=== PATIENT | male | born 1995 ===

== ENCOUNTER 2016-05-15 10:49 | Emergency (ER) | payer MEDICAID ==
[2016-05-15 10:54] VITALS: TEMP 98
--- NOTE | 2016-05-15 11:54 | ED PDOC ---
HPI: General Adult Time Seen by Provider: 05/15/16 11:19 Chief Complaint (Nursing): Back Pain Chief Complaint (Provider): Back Pain History Per: Patient Additional Complaint(s): Pt. states for the past year he's had atraumatic lower back pain which radiates down his leg. Pt. states he's been prescribed Gabapentin for this in the past without much relieve. 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 Denies hematuria, dysuria, incontinence, abdominal pain, N/V, fever. Past Medical History Reviewed: Historical Data, Nursing Documentation, Vital Signs Vital Signs: Last Vital Signs Temp 98 F 05/15/16 10:52 Pulse 65 05/15/16 10:52 Resp 20 05/15/16 10:52 BP 105/58 L 05/15/16 10:52 Pulse Ox 100 05/15/16 11:55 - Medical History PMH: Anxiety, Asthma, Bipolar Disorder, Depression, Hepatitis (Hep A ), Schizophrenia Denies: Diabetes, HIV, HTN, Seizures, Sexually Transmitted Disease - Surgical History Surgical History: Tonsillectomy - Family History Family History: States: Unknown Family Hx, Diabetes - Immunization History Hx Tetanus Toxoid Vaccination: No Hx Influenza Vaccination: No Hx Pneumococcal Vaccination: No - Home Medications Home Medications: Ambulatory Orders Medication Instructions Recorded Sertraline [Zoloft] 100 mg PO BID #60 tab 11/02/15 traZODone [Desyrel] 100 mg PO HS PRN #30 tab 11/02/15 [place] Carbonate [[place] 1,200 mg PO BID 11/07/15 Carbonate 300MG] Albuterol HFA [Ventolin HFA 90 2 puff INH RQ4 PRN #1 inhaler 11/19/15 mcg/actuation (8 g)] DULoxetine [Cymbalta] 60 mg PO DAILY #30 ecc 11/19/15 Gabapentin [Neurontin] 300 mg PO TID #90 cap 11/19/15 [place] Carbonate [[place] 600 mg PO BID #60 cap 11/19/15 Carbonate 300MG] Propranolol [Inderal] 10 mg PO BID #90 tab 11/19/15 traZODone [Desyrel] 100 mg PO HS PRN #30 tab 11/19/15 Nystatin/Triamcinolone Acetoni 1 applic TOP BID #1 tube 12/17/15 [Mycolog II] Cyclobenzaprine [Cyclobenzaprine 10 mg PO Q8 PRN #30 tab 05/15/16 HCl] Naproxen [Naprosyn] 500 mg PO BID PRN #30 tab 05/15/16 - Allergies Allergies/Adverse Reactions: Allergies Allergy/AdvReac Type Severity Reaction Status Date / Time No Known Allergies Allergy Verified 05/15/16 11:05 Review of Systems ROS Statement: Except As Marked, All Systems Reviewed And Found Negative Musculoskeletal: Positive for: Back Pain Physical Exam - Physical Exam Appears: Positive for: Well, Non-toxic, No Acute Distress Skin: Positive for: Normal Color, Warm. Negative for: Rash Cardiovascular/Chest: Positive for: Regular Rate, Rhythm Respiratory: Positive for: CNT, Normal Breath Sounds Gastrointestinal/Abdominal: Positive for: Normal Exam, Soft. Negative for: Tenderness Back: Positive for: Normal Inspection, R CVA Tenderness, Muscle Spasm (b/l paralumbar). Negative for: L CVA Tenderness Extremity: Positive for: Normal ROM Neurologic/Psych: Positive for: Alert, Oriented - ECG O2 Sat by Pulse Oximetry: 100 - Radiology X-Ray: Interpreted by Me (LS spine x-ray) X-Ray Interpretation: No Acute Disease - Progress ED Course And Treament: Toradol 15mg IM, flexeril 10mg PO given. LS spine x-ray ordered. Disposition - Clinical Impression Clinical Impression: Low back pain - Patient ED Disposition Is Patient to be Admitted: No - Disposition Referrals: [facility] [Outside] [facility] [Outside] Disposition: Routine/Home Disposition Time: 12:58 Condition: STABLE Prescriptions: Cyclobenzaprine [Cyclobenzaprine HCl] 10 mg PO Q8 PRN #30 tab PRN Reason: Muscle Spasm Naproxen [Naprosyn] 500 mg PO BID PRN #30 tab PRN Reason: Pain Instructions: Acute Low Back Pain (ED)
[2016-05-15 13:08] VITALS: BP 122/70; PULSE 70; RESP 16; O2SAT 98
--- NOTE | 2016-05-15 14:27 | RAD ---
PROCEDURE: Radiographs of the Lumbar Spine. HISTORY: pain COMPARISON: None available. FINDINGS: BONES: Alignment appears satisfactory. No listhesis. No acute displaced fracture identified. DISC SPACES: Unremarkable. OTHER FINDINGS: Linear radiopaque object projects over the right L4 vertebral body on the AP view, absent on lateral views and presumed external to the patient. Additionally, there is a small punctate density adjacent to the right T12 vertebral body, also likely artifact. IMPRESSION: No acute displaced fracture or subluxation identified. Linear radiopaque object projects over the right L4 vertebral body on the AP view, absent on lateral views and presumed external to the patient. Additionally, there is a small radiopaque punctate density adjacent to the right T12 vertebral body also likely artifact.
== END 2016-05-15 13:08 | disposition home or self-care (01) ==
LOC: H.ER 10:49
DX: M54.5 Low back pain (principal); F20.9 Schizophrenia, unspecified
CPT/HCPCS: 72100; 96372; 99282; J1885